=== PATIENT | female | born 1940 | race Caucasian/White ===

== ENCOUNTER → 2021-05-04 | Outpatient (CLI) | payer MEDICARE ==
--- NOTE | 2021-05-04 14:52 | Diagnostic Imaging Report ---
PROCEDURE: US Renal Bilateral. TECHNIQUE: Multiple real-time grayscale images were obtained over the kidneys in various projections bilaterally. INDICATION: Chronic kidney disease stage III. Right kidney measures 11.0 x 5.4 x 4.8 cm, the left kidney measures 10.9 x 4.3 x 4.6 cm. Cortical echogenicity and thickness appears to be normal. No calculi or hydronephrosis is seen. There is a cyst in the lower pole of the left kidney measuring 2.2 x 1.5 x 1.3 cm. Bladder is unremarkable. Ureteral jets are visualized. IMPRESSION: Left lower pole renal cyst. No calculi or hydronephrosis is detected. Dictated by: Dictated on workstation # [id number]
== END ==
LOC: RAD 13:00
PROVIDERS: ATTEND Specialist
DX: N18.32 Chronic kidney disease, stage 3b (principal); N28.1 Cyst of kidney, acquired
CPT/HCPCS: 76770

== ENCOUNTER → 2022-07-20 | Outpatient (CLI) | payer MEDICARE ==
--- NOTE | 2022-07-20 15:15 | Diagnostic Imaging Report ---
EXAMINATION: US Lower Extremity Venous Duplex Left. TECHNIQUE: Multiple real-time grayscale images were obtained over the left lower extremity in various projections. Additional spectral analysis and color Doppler duplex images were also obtained. HISTORY: Left leg pain and swelling. COMPARISON: None available. FINDINGS: Occlusive deep vein thrombus is seen throughout the entire left lower extremity venous system. The left common femoral, profunda femoris, superficial femoral, and popliteal veins demonstrate noncompressibility without color Doppler filling. IMPRESSION: 1. Extensive occlusive deep vein thrombus throughout the left lower extremity venous system. Dictated by: Dictated on workstation # [id number]
== END ==
LOC: RAD 15:00
PROVIDERS: ATTEND Podiatrist Foot & Ankle Surgery
DX: I82.402 Acute embolism and thrombosis of unspecified deep veins of left lower extremity (principal)